=== PATIENT | female | born 1935 | race Caucasian/White ===

== ENCOUNTER 2020-12-01 10:46 | Outpatient (RCR) | payer MEDICARE, OTHER, SELFPAY | END 2020-12-01 23:59 | LOC: IMMUN 10:46 | PROVIDERS: PCP Internal Medicine; Referring Provider Family Medicine; Visit Provider Family Medicine | DX: Z23 Encounter for immunization (principal) | CPT/HCPCS: 0011A; 0012A ==

== ENCOUNTER 2024-12-18 13:05 | Emergency (ER) | payer MEDICARE, OTHER, SELFPAY ==
[2024-12-18 13:06] VITALS: BP 112/89; PULSE 79; RESP 16; TEMP 35.9; O2SAT 98; BMI 20.4
--- NOTE | 2024-12-18 14:28 | EX.ED.VIS.EY ---
HPI <PIA Bonilla - Last Filed: 12/18/24 14:46> History of Present Illness Chief Complaint: Eye Problem Narrative Narrative: Patient is an 89-year-old female with history of high cholesterol, dementia who presents to the [facility] part with 7 days of redness around both eyes. Per the son who takes care of her, the patient has went to an urgent care as well as to an eye doctor, the eye doctor was 2 days ago. Patient is currently on ofloxacin eyedrops as well as bacitracin ophthalmic ointment to put around at nighttime. The son got concerned because the skin was getting more red down to her face and they are here for evaluation. The patient has no vision changes. There is no issues with the eyeballs themselves. This is most of the skin around the eyes. [facility] <PIA Bonilla - Last Filed: 12/18/24 14:46> [facility] Medical History (Updated 12/18/24 @ 14:43 by PIA Bonilla) Memory loss Home Medications ?Medication ?Instructions ?Recorded ?Last Taken ?Type aspirin 81 mg tablet,delayed 81 mg PO QDAY 10/25/24 Unknown History release calcium 260 mg (phos,tribasic)-D3 tab PO 10/25/24 Unknown History 25 mcg-herbal 50 mg chewable tablet (Alive Calcium-Vitamin D3) fenofibric acid (choline) 135 mg 135 mg PO QDAY 10/25/24 Unknown History capsule,delayed release multivitamin 1 tab PO QAM 10/25/24 Unknown History mupirocin 2 % topical ointment 1 applic topical TID #1 tube 12/18/24 Unknown Rx prednisone 20 mg tablet 40 mg (2 x 20 mg) PO DAILY 5 days 12/18/24 Unknown Rx #10 tabs Allergy/AdvReac Type Severity Reaction Status Date / Time No Known Allergies Allergy Verified 10/25/24 16:38 Family History (Updated 11/11/24 @ 09:46 by Leonila Albrecht) Other CVA (cerebral vascular accident) Cancer Social History (Updated 11/11/24 @ 09:47 by Leonila Albrecht) Smoking Status: Never smoker alcohol intake: never substance use type: does not use ROS <PIA Bonilla - Last Filed: 12/18/24 14:46> ROS ED ROS Narrative Constitutional: Negative for fever, chills, weight loss, weakness Eyes: Negative for vision loss, vision change, double vision ENT: Negative for any sore throat, ear pain, congestion Cardiovascular: Negative for any chest pain, tightness, palpitations Respiratory: Negative for any cough, sputum production, hemoptysis, dyspnea, dyspnea on exertion, orthopnea Gastrointestinal: Negative for any abdominal pain, nausea, vomiting, diarrhea, constipation, blood in stool, blood in vomit : Negative for any urinary frequency, dysuria, retention, blood in urine Muscle skeletal: Negative for any neck pain, back pain Neurological: Negative for any headache, syncope, dizziness Skin: Negative for any rashes, itching, abrasions, lacerations. Positive for some erythematous skin around the eyes, slight itching. Psychiatric: Negative for any depression, anxiety, stress, suicidal ideation, homicidal ideation Hematologic: Negative for any excessive bruising, easy bleeding EXAM <PIA Bonilla - Last Filed: 12/18/24 14:46> Physical Exam Narrative Exam Narrative: Vital signs reviewed. HEET: Head normocephalic atraumatic, TMs clear bilaterally. Posterior pharynx is clear, moist mucous membranes. Nares clear bilaterally. Pupils are equal round reactive to light. Cornea clear. No injection. Patient does have some erythema, slight edema around both eyes. The redness does go down into the creases of the face. There is no significant discharge, there is no abscess formation. Neck: Supple with no lymphadenopathy or tenderness. No signs of meningismus. Cardiac: Regular rate and rhythm no murmurs gallops or rubs, equal peripheral pulses bilaterally. Respiratory: Lungs clear to auscultation bilaterally. No chest tenderness. Abdomen: Soft, nontender, nondistended. No abdominal bruit or pulsatile masses. No hepatosplenomegaly Extremities: No peripheral edema, no signs of gross trauma or deformity. Active full range of motion of all extremities. Neuro: Cranial nerves II through XII intact, no focal neurological deficits. Skin: Clean dry and intact with no rash, purpura, petechiae, vesicles or pustules. Backs/flank: No CVA tenderness, no midline spinal tenderness, no deformity. Psych: Normal mood and affect. No SI, HI or acute psychosis. Const Vital Signs: 12/18/24 13:06 Temperature 96.6 F L Temperature Source Temporal Pulse Rate 79 Respiratory Rate 16 Blood Pressure 112/89 H Blood Pressure Mean 96 Pulse Ox 98 Oxygen Delivery Method Room Air Positive well nourished [facility] <PIA Bonilla - Last Filed: 12/18/24 14:46> [facility] Treatment and Re-Evaluation Narrative: Differential diagnosis includes however is not limited to: Orbital cellulitis, contact dermatitis, , Abscess formation, foreign body, cellulitis, vertigo, tinea Patient appears generally well, vital signs are stable, patient is nontoxic-appearing. Presenting to the emerged department for complaints of redness to both eyes, going down her face. This does seem to be more of a contact dermatitis. There is no evidence suspect any deep tissue infection, abscess, orbital, preseptal cellulitis. At this time, patient will stop the polymyxin ointment, patient will be placed on mupirocin and will be given a short course of prednisone. Instructed to return and follow-up with dermatology. Patient is agreeable. I do not believe that any imaging needed. Patient stable for discharge <Dr. Betty Reid DO - Last Filed: 12/21/24 07:39> [facility] Treatment and Re-Evaluation Narrative: Differential diagnosis includes however is not limited to: Orbital cellulitis, contact dermatitis, , Abscess formation, foreign body, cellulitis, vertigo, tinea Patient appears generally well, vital signs are stable, patient is nontoxic-appearing. Presenting to the emerged department for complaints of redness to both eyes, going down her face. This does seem to be more of a contact dermatitis. There is no evidence suspect any deep tissue infection, abscess, orbital, preseptal cellulitis. At this time, patient will stop the polymyxin ointment, patient will be placed on mupirocin and will be given a short course of prednisone. Instructed to return and follow-up with dermatology. Patient is agreeable. I do not believe that any imaging needed. Patient stable for discharge I have personally performed a face to face assessment of the patient and have reviewed the SHEKHAR Note. I performed a substantive portion of the visit including all aspects of the following. My persaud findings include: History is patient is an 89-year-old female with history of dementia presenting with her son for concern of worsening rash on her face. Developed a rash about a week ago initially went to urgent care as it was mostly on her eyes. Was told that she does not have pinkeye was referred to ophthalmology. Saw ophthalmology in [facility] and was put on Polymycin ointment for around her eye as well as ophthalmic drops. She has had continued itching of her face and around her eyes and is using a pointed she is scratching her face. Has follow-up within 2 to 3 days with ophthalmology again. No report of any vision changes. No fevers or chills. On exam patient's normocephalic atraumatic. No conjunctival injection present. She has some slight erythema of the periorbital area bilaterally consistent more with a contact dermatitis. On her cheek on the left she has an associated abrasion consistent with scratching. She has another abrasion at the right nasal fold. No associated drainage noted. She has erythema in the creases of her skin on her face relatively diffusely but most pronounced in the glabellar area as well as her nasolabial folds. She is nontoxic-appearing and overall actually appears quite well. She has normal oropharyngeal exam. Clear breath sounds. I suspect she is having contact dermatitis and possibly from the Polymycin ointment. Physical exam not consistent with abscess or cellulitis. Lower suspicion for secondary impetigo. Patient will be placed on prednisone and switched to mupirocin ointments. Will continue to follow-up outpatient with ophthalmology. Given return precautions. Discharged home in stable condition. Other additions or changes: [None] Discharge Plan Triage Chief Complaint: Eye Problem ED Midlevel Provider: Daron Bowser ED Provider: Betty Reid Dx/Rx/DC Orders Clinical Impression: Contact dermatitis Instructions: Understanding Contact Dermatitis, ED Contact Dermatitis Prescriptions: New mupirocin 2 % ointment 1 applic topical TID Qty: 1 0RF prednisone 20 mg tablet 40 mg PO DAILY 5 Days Qty: 10 0RF No Action aspirin 81 mg tablet,delayed release (DR/EC) 81 mg PO QDAY Alive Calcium-Vitamin D3 260 mg calcium- 25 mcg-50 mg tablet,chewable PO fenofibric acid (choline) 135 mg capsule,delayed release(DR/EC) 135 mg PO QDAY multivitamin Tablet 1 tab PO QAM Primary Care Provider: Renea Samaniego Referrals: Renea Samaniego MD [Primary Care Provider] - Dwain Blanchard MD [Med Staff - Warehouse Specialist] - Activity Restrictions/Additional Instructions: You will stop the polymyxin ointment. You will now use the mupirocin 2% ointment 2-3 times a day to the affected area. This is for 7 days. Prednisone take in the morning, this would help with the inflammation and itching. Follow-up with dermatology, if getting worse, fever chills, please return. Continue taking the eyedrops. Print Language: Thai Disposition Disposition: Home, Self Care Discharge Date/Time: 12/18/24 15:03
[2024-12-18] MEDS: predniSONE 20 MG Tablet 40 MG PO (15:00)
[2024-12-18 15:02] VITALS: BP 110/68; PULSE 67; RESP 16; TEMP 36.6; O2SAT 97
== END 2024-12-18 15:03 | disposition home or self-care (01) ==
PROVIDERS: Emergency Provider Emergency Medicine; PCP Internal Medicine; Visit Provider Emergency Medicine
DX: L25.9 Unspecified contact dermatitis, unspecified cause (principal); E78.00 Pure hypercholesterolemia, unspecified
CPT/HCPCS: 99282